=== PATIENT | male | born 1990 | race Caucasian/White ===

== ENCOUNTER 2016-09-09 18:27 | Emergency (ER) | payer OTHER, BC ==
[~2016-09-09] VITALS: Ht 185.4 cm; Wt 127.0 kg
[2016-09-09] MEDS ORDERED: ACID REDUCER75 MG PO (18:43)
== END 2016-09-09 19:15 | disposition home or self-care (01) ==
LOC: ED 18:27
DX: S80.02XA Contusion of left knee, initial encounter (principal); Z79.899 Other long term (current) drug therapy; Y08.89XA Assault by other specified means, initial encounter
CPT/HCPCS: 73560; 99283

== ENCOUNTER 2018-03-25 08:57 | Emergency (ER) | payer OTHER ==
[~2018-03-25] VITALS: Ht 185.4 cm; Wt 127.0 kg
[~2018-03-25 08:57] MED LIST: ACID REDUCER75 MG PO
--- OUTSIDE RECORDS SUMMARY | 2018-03-25 09:00 | XMS ---
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 E.Wilbert VISIT COUNT (12 MO.) 1 SONIA Diego TOTAL 1 NOTE: Visits indicate total known visits. ED/UCC VISIT TRACKING (12 MO.) 03/25/2018 08:[address] [facility] [place] TYPE: Emergency COMPLAINT: - BLOODY STOOL INPATIENT VISIT TRACKING (12 MO.) No inpatient visits to display in this time frame [id number]
[2018-03-25] MEDS ORDERED: LOVASTATIN10 MG PO (09:11)
[2018-03-25] MEDS ORDERED: MELATONIN1 MG PO (09:12)
[2018-03-25] MEDS ORDERED: IBUPROFEN200 MG PO (09:13)
[2018-03-25] MEDS ORDERED: ANUSOL-HC25 MG PR (11:21)
== END 2018-03-25 11:28 | disposition home or self-care (01) ==
LOC: ED 08:57
DX: K64.8 Other hemorrhoids (principal); K92.2 Gastrointestinal hemorrhage, unspecified; Z79.899 Other long term (current) drug therapy
CPT/HCPCS: 74177; 80053; 81001; 83690; 85025; 85610; 96360; 99285-25; J7030; Q9967

== ENCOUNTER 2018-05-08 14:48 | Emergency (ER) | payer OTHER ==
[~2018-05-08] VITALS: Ht 185.4 cm; Wt 124.7 kg
[~2018-05-08 14:48] MED LIST changes: +ANUSOL-HC25 MG PR; +IBUPROFEN200 MG PO; +LOVASTATIN10 MG PO; +MELATONIN1 MG PO; +MULTIVITAMINS1 EAC7 PO; +PROBIOTIC1 EAC1 PO; +SIMVASTATIN40 MG PO; +TYLENOL EXTRA500 MG PO; +ZANTAC150 MG PO; +ZZZQUIL25 MG PO
[2018-05-08] MEDS ORDERED: BUSPIRONE HCL5 MG PO (16:04)
== END 2018-05-08 16:17 | disposition home or self-care (01) ==
LOC: ED 14:48
DX: R20.2 Paresthesia of skin (principal); F41.9 Anxiety disorder, unspecified; E78.00 Pure hypercholesterolemia, unspecified
CPT/HCPCS: 99283

== ENCOUNTER 2018-07-13 13:37 | Emergency (ER) | payer OTHER ==
[~2018-07-13] VITALS: Ht 185.4 cm; Wt 127.0 kg
--- OUTSIDE RECORDS SUMMARY | ~2018-07-13 | XMS | Encounter Summary ---
Demographics + + + | Address | [address] | | | [place] [address] | + + + | Home Phone | | + + + | Preferred Language | Unknown | + + + | Marital Status | | + + + | Mosque Affiliation | Unknown | + + + | Race | Unknown | + + + | Ethnic Group | Unknown | + + + Author + + + | Author | [facility] | | | and [place]ana | + + + | Organization | [facility] | | | and Tomana | [...] Team Providers + +------+ + | Care Hospital Educator Name | Role | Phone | + +------+ + | Francesca Sullivan | PCP | | | PA | | | + +------+ + Reason for Visit Evaluate & Treat (Routine) +--------+--------+ + + + + | Status | Reason | Specialty | Diagnoses / | Referred By | Referred To | | | | | Procedures | Contact | Contact | +--------+--------+ + + + + | Closed | | Audiology | Diagnoses | Nate, Phill Olson | | | | | audio and | Francesca | MS Jesús | | | | | tymhans/ SOLEDAD/ | [place], [place] | CCC-A [address] | | | | | SABA/ Send | [address] | | | | | report with | Soham Jimenez | [address] | | | | | patient/ | [place], | [place] | | | | | [place] | [place] | [address] Phone: | | | | | send patient | [address] | [phone] | | | | | info/no | Phone: | Fax: | | | | | previous | [phone] | [phone] | | | | | audiogram | Fax: | | | | | | Procedures | [phone] | | | | | | OFFICE VISIT | | | | | | | REGULAR | | | +--------+--------+ + + + + Encounter Details +--------+---------+ + + + | Date | Type | Department | Care Team | Description | +--------+---------+ + + + | 05/21/ | Office | [facility] | Jesús Olson, MS | Subjective tinnitus | | 2019 | Visit | AUDIOLOGY AND | CCC-A [address] | of both ears | | | | [facility] SERVICES | [address] | (Primary Dx); | | | | [address] | [place] [address] | Sensorineural | | | | [address] | [phone] | hearing loss (SNHL) | | | | [place] [address] | | of right ear with | | | | [phone] | | unrestricted hearing | | | | | | of left ear | +--------+---------+ + + + Social History + +-------+ +--------+------+ | Tobacco [...] on file | | + + + + + + + | Job Start Date | Occupation | Industry | + + + + | Not on file | Not on file | Not on file | + + + + + + + + | Travel History | Travel Start | Travel End | + + + + + + | No recent travel history available. | + + documented as of this encounter Progress Notes Jesús Olson, CCC-A - 05/21/2018 0930 PDTReferring Provider: No additional provider santos mix M.D. Mr. Gallo presents with occasional ringing in both ears. He has noticed a muffling in his hearing, denying any pressure in his ears. He works for the [employer] and uses h earing protection during target practice. Noise history includes hunting. Results of Hearing Test: Right ear--Pure tone air and bone conduction testing showed 10-15d B threshold at 250 Hz through 1 KHz, 25dB at 2 KHz, and 15-10dB at 3 Khz through 8 KHz . Left ear --Pure tone air and bone conduction testing showed 5-15dB threshold at 250 Hz through 8 KHz. Speech Recognition Thresholds were 10dB in the right ear and 5dB in the left ear. Speech Discrimination Scores were 100% in right ear and 100% in the left ear. Tympanometry showed normal type A tracings in both ears. Impression and Recommendation: A mild sensory-neural hearing loss in the right ear and sub jective tinnitus in both ears. Hearing protection when around loud noise and hunting was di scussed. Follow-up care with Dr. Raymundo, ENT. Thank you. documented in this e ncounter Plan of Treatment Not on filedocumented as of this encounter Procedures + +--------+ + + + | Procedure Name | Priori | Date/Time | Associated Diagnosis | Comments | | | ty | | | | + +--------+ + + + | DIAGNOSTIC REPORT - | | 05/21/2018 | | Results for this | | EXTERNAL SCAN | | 0:00 PDT | | procedure are in the | | | | | | results section. | + +--------+ + + + documented in this encounter Results DIAGNOSTIC REPORT - EXTERNAL SCAN (05/21/2018 0:00 PDT) + + + | Narrative | Performed At | + + + | Ordered by an | | | unspecified provider. | | + + + documented in this encounter Visit Diagnoses + + | Diagnosis | + + | Subjective tinnitus of both ears - Primary | + + | Sensorineural hearing loss (SNHL) of right ear with unrestricted hearing of left ear | + + documented in this encounter"
--- OUTSIDE RECORDS SUMMARY | ~2018-07-13 | XMS | Clinical Summary ---
Demographics + + + | Address | [address] | | | [place] [address] | + + + | Home Phone | | + + + | Preferred Language | Unknown | + + + | Marital Status | | + + + | Zoroastrianism Affiliation | Unknown | + + + | Race | Unknown | + + + | Ethnic Group | Unknown | + + + Author + + + | Author | [facility] | | | and [place] | + + + | Organization | [facility] | | | and [place] [...] Team Providers + +------+ + | Care Roof Plumber Name | Role | Phone | + +------+ + | Francesca Sullivan | PP | | | PA | | | + +------+ + Allergies Not on File Medications Not on file Active Problems Not on file Encounters +--------+---------+ + + + | Date | Type | Specialty | Care Team | Description | +--------+---------+ + + + | 05/21/ | Office | | Jesús Olson MS | Subjective tinnitus | | 2018 | Visit | | CCC-A | of both ears | | | | | | (Primary Dx); | | | | | | Sensorineural | | | | | | hearing loss (SNHL) | | | | | | of right ear with | | | | | | unrestricted hearing | | | | | | of left ear | +--------+---------+ + + + from Last 3 Months Social History + +-------+ +--------+------+ | Tobacco [...] recent travel history available. | + + Plan of Treatment + + + + + | Health Maintenance | Due Date | Last Done | Comments | + + + + + | Vaccine: Influenza | | 12/13/2016 | | | (Season Ended) | 9 | | | + + + + + | Vaccine: | | 12/13/2016, 08/28/2006, | | | Dtap/Tdap/Td (8 - | 7 | 06/10/1995, Additional history | | | Td) | | exists | | + + + + + Procedures + +--------+ + + + | [...] section. | + +--------+ + + + from Last 3 Months Results DIAGNOSTIC REPORT - EXTERNAL SCAN (05/21/2018 0:00 PDT) + + + | Narrative | Performed At | + + + | Ordered by an | | | unspecified provider. | | + + + from Last 3 Months Insurance + +--------+ +--------+ +---------+------+ | Payer | Benefi | Subscriber | Effect | Phone | Address | Type | | | t Plan | ID | gilberto | | | | | | / | | Dates | | | | | | Group | | | | | | + +--------+ +--------+ +---------+------+ | [facility] | [facility] | [id number] | 02/13/19 | [phone] | | PPO | | PLAN | [...] Person | Self | [birth year] | [address] | | | al/Fam | | 1990 | [phone] | [place], | | | [place] | | | 0 (Home) | [place] [address] | + +--------+ +--------+ + + Advance Directives Patient has advance care planning documents on file. For more information, please contact:[facility] [place] [address]"
--- OUTSIDE RECORDS SUMMARY | ~2018-07-13 | XMS | Clinical Summary ---
Demographics + + + | Address | [address] | | | [place] [address] | + + + | Home Phone | | + + + | Preferred Language | Unknown | + + + | Marital Status | | + + + | Confucianist Affiliation | Unknown | + + + | Race | Unknown | + + + | Ethnic Group | Unknown | + + + Author + + + | Author | [facility] | | | and [place] | + + + | Organization | [facility] | | | and Tomana [...] Team Providers + +------+ + | Care Monument Installer Name | Role | Phone | + [...] | | + +--------+ +--------+ +---------+------+ | [facility] | [facility] | [id number] | 02/13/19 | [phone] | | PPO [...] Person | Self | [birth year] | [address] | | | al/Fam | | 1990 | [phone] | [place], | | | [place] | | | 0 (Home) | [place] [address] | + +--------+ +--------+ + + Advance Directives Patient has advance care planning documents on file. For more information, please contact:[facility] [place] [address]"
--- OUTSIDE RECORDS SUMMARY | ~2018-07-13 | XMS | Encounter Summary ---
Demographics + + + | Address | [address] | | | [place] [address] | + + + | Home Phone | | + + + | Preferred Language | Unknown | + + + | Marital Status | | + + + | Temple Affiliation | Unknown | + + + | Race | Unknown | + + + | Ethnic Group | Unknown | + + + Author + + + | Author | [facility] | | | and [place] | + + + | Organization | [facility] | | | and Tomana [...] Team Providers + +------+ + | Care Public Speaking Instructor Name | Role | Phone | + [...] | Audiology | Diagnoses | Nate, Phill Oslon | | | | | audio and [...] | | [place] | [place] | [address] Phone: | | | | | send patient | [address] | [phone] | | | | | info/no | Phone: | Fax: | | | | | previous | [phone] | [phone] | | | | | audiogram | Fax: | | | | | | Procedures | [phone] | | | | | | OFFICE [...] | | [address] | [place] [address] | Sensorineural | | | | [address] | [phone] | hearing loss (SNHL) | | | | [place] [address] | | of right ear with | | | | [phone] | | unrestricted hearing | | | [...] in his ears. He works for the [employer] and uses h earing protection during target [...]
[~2018-07-13 13:37] MED LIST changes: +BUSPIRONE HCL5 MG PO
[2018-07-13] MEDS ORDERED: BUSPIRONE HCL10 MG PO (14:03)
[2018-07-13] MEDS ORDERED: FLUOXETINE HCL10 MG PO (14:03)
[2018-07-13] MEDS ORDERED: PROCTOCREAM-HC30 GM TOP (14:04)
[2018-07-13] MEDS ORDERED: DICYCLOMINE HCL20 MG PO (17:44)
== END 2018-07-13 17:50 | disposition home or self-care (01) ==
LOC: ED 13:37
DX: R10.9 Unspecified abdominal pain (principal); F41.9 Anxiety disorder, unspecified; Z79.899 Other long term (current) drug therapy
CPT/HCPCS: 36415; 80053; 83690; 85025; 99284

== ENCOUNTER 2019-09-12 18:47 | Emergency (ER) | payer OTHER ==
[~2019-09-12] VITALS: Ht 185.4 cm; Wt 127.0 kg
--- OUTSIDE RECORDS SUMMARY | ~2019-09-12 | XMS | Clinical Summary ---
Demographics + + + | Address | [address] | | | [place] [address] | + + + | Home Phone | | + + + | Preferred Language | Unknown | + + + | Marital Status | | + + + | Taoism Affiliation | Unknown | + + + | Race | Unknown | + + + | Ethnic Group | Unknown | + + + Author + + + | Author | [facility] | | | and [place] | + + + | Organization | [facility] | | | and [place] | + + + | Address | Unknown | + + + | Phone | Unavailable | + + + Support + + +---------+ + | Name | Relationship | Address | Phone | + + +---------+ + | Carlie Gallo | ECON | Unknown | | + + +---------+ + Care Team Providers + +------+ + | Care Project Management Name | Role | Phone | + +------+ + | Francesca Sullivan | PCP | | | PA | | | + +------+ + Allergies Not on File Medications Not on file Active Problems Not on file Social History + +-------+ +--------+------+ | Tobacco Use | Types | Packs/Day | Years | Date | | | | | Used | | + +-------+ +--------+------+ | Never Assessed | | | | | + +-------+ +--------+------+ + + + | Sex Assigned at | Date Recorded | | | | + + + | Not on file | | + + + Last Filed Vital Signs Not on file Plan of Treatment + + + + + | Health Maintenance | Due Date | Last | Comments | | | | Done | | + + + + + | Hepatitis C | | | | | Screening | 1 | | | + + + + + | Vaccine: Influenza | | 12/14/19 | | | (#1) | 0 | 17 | | + + + + + | Vaccine: | | 12/14/19 | | | Dtap/Tdap/Td (8 - | 7 | 17, | | | Td) | | 08/29/19 | | | | | 07, | | | | | 06/09/18 | | | | | 96, | | | | | Addition | | | | | al | | | | | history | | | | | exists | | + + + + + Results Not on filefrom Last 3 Months Insurance + +--------+ +--------+ +---------+------+ | Payer | Benefi | Subscriber | Effect | Phone | Address | Type | | | t Plan | ID | gilberto | | | | | | / | | Dates | | | | | | Group | | | | | | + +--------+ +--------+ +---------+------+ | [facility] | [employer] | [id number] | 02/13/19 | [phone] | | PPO | | PLAN | PEBB | | 18-Pre | 5 | | | | | PROV | | sent | | | | | | CHOICE | | | | | | + +--------+ +--------+ +---------+------+ + +--------+ +--------+ + + | Guarantor Name | Accoun | Relation to | Date | Phone | Billing Address | | | t Type | Patient | of | | | | | | | | | | + +--------+ +--------+ + + | Venancio Gallo | Person | Self | [birth year] | [address] | | | al/Fam | | 1990 | [phone] | [place], | | | [place] | | | 0 (Home) | [place] [address] | + +--------+ +--------+ + + Advance Directives + + + + + | Type | Date Recorded | Patient | Explanation | | | | Pull Socket Assembler | | + + + + + | Power of | | | | | Heat Treat Worker | | | | + + + + + | Advance | | | | | Directive | | | | + + + + +"
--- OUTSIDE RECORDS SUMMARY | ~2019-09-12 | XMS | Encounter Summary ---
Demographics + + + | Address | [address] | | | [place] [address] | + + + | Home Phone | | + + + | Preferred Language | Unknown | + + + | Marital Status | | + + + | Protestant Affiliation | Unknown | + + + | Race | Unknown | + + + | Ethnic Group | Unknown | + + + Author + + + | Author | [facility] | | | and [place] | + + + | Organization | [facility] | | | and Tomana [...] Team Providers + +------+ + | Care Blade Boner Name | Role | Phone | + [...] | | Audiology | Diagnoses | Nate, | Wesley | | | | | audio and | Francesca | MS Jesús | | | | | calixto/ SOLED[place]/ | [facility]O Pickard | [facility] [address] | | | | | SABA/ Send | [address] | | | | | report with | Soham Jimenez | [address] | | | | | patient/ | [place], | [place] | | | | | [place] | [place] | [address] Phone: | | | | | send patient | [address] | [phone] | | | | | info/no | Phone: | Fax: | | | | | previous | [phone] | [phone] | | | | | audiogram | Fax: | | | | | | Procedures | [phone] | | | | | | OFFICE VISIT | | | | | | | REGULAR | | | +--------+--------+ + + + + Encounter Details +--------+---------+ + + + | Date | Type | Department | Care Team | Description | +--------+---------+ + + + | 05/21/ | Office | [facility] [place] | Jesús Olson MS | Subjective tinnitus | | 2019 | Visit | AUDIOLOGY AND | CCC-A [address] | of both ears | | | | HEARING AID SERVICES | [address] | (Primary Dx); | | | | [address] | [place] [address] | Sensorineural | | | | [address] | [phone] | hearing loss (SNHL) | | | | [place] [address] | | of right ear with | | | | [phone] | | unrestricted hearing | | | [...] on file | | + + + documented as of this encounter Progress Notes Jesús Olson, CCC-A - 05/21/2018 9:30 AM PDTReferring Provider: No additional provider found M.Rony. Mr. Gallo presents with occasional ringing in both ears. He has noticed a muffling in his hearing, denying any pressure in his ears. He works for the [employer] and uses h earing protection during target [...] Dr. Raymundo, ENT. Thank you. documented in thi s encounter Plan of Treatment Not on filedocumented as of this encounter Procedures + +--------+ + + + | Procedure Name | Priori | Date/Time | Associated Diagnosis | Comments | | | ty | | | | + +--------+ + + + | DIAGNOSTIC REPORT - | | 05/21/2018 | | Results for this | | EXTERNAL SCAN | | 12:00 AM | | procedure are in the | | | | PDT | | results section. | + +--------+ + + + documented in this encounter Results DIAGNOSTIC REPORT - EXTERNAL SCAN (05/21/2018 12:00 AM PDT) + + + | Narrative | [...]
[~2019-09-12 18:47] MED LIST changes: +BUSPIRONE HCL10 MG PO; +CETIRIZINE HCL10 MG PO; +DICYCLOMINE HCL20 MG PO; +FISH OIL 1,0001 EAC3 PO; +FLUOXETINE HCL10 MG PO; +L-METHYLFOLATE15 M1 PO; +MAGNESIUM27 MG PO; +PROCTOCREAM-HC30 GM TOP; +TRAZODONE HCL50 MG PO; +VITAMIN B122500 MCG PO; +VITAMIN D35000 UNIT PO; +WELLBUTRIN XL300 MG PO
--- OUTSIDE RECORDS SUMMARY | 2019-09-12 18:50 | XMS ---
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 EEneida VISIT COUNT (12 MO.) 1 SONIA Diego TOTAL 1 NOTE: Visits indicate total known visits. ED/UCC VISIT TRACKING (12 MO.) 09/12/2019 18:48 [facility] [place] TYPE: Emergency COMPLAINT: - UPPER ABDOMINAL PAIN,VOMITING, DIAHREA INPATIENT VISIT TRACKING (12 MO.) No inpatient visits to display in this time frame [id number]
[2019-09-12] MEDS ORDERED: GABAPENTIN300 MG PO (20:03)
[2019-09-12] MEDS ORDERED: MIRTAZAPINE45 MG PO (20:03)
[2019-09-12] MEDS ORDERED: GEODON80 MG NG (20:03)
[2019-09-12] MEDS ORDERED: ZOFRAN4 MG PO (23:27)
[2019-09-12] MEDS ORDERED: PRILOSEC OTC20 MG PO (23:30)
== END 2019-09-12 23:49 | disposition home or self-care (01) ==
LOC: ED 18:47
DX: K52.9 Noninfective gastroenteritis and colitis, unspecified (principal); E78.00 Pure hypercholesterolemia, unspecified; F41.9 Anxiety disorder, unspecified; Z79.899 Other long term (current) drug therapy
CPT/HCPCS: 74177; 80053; 81001; 83690; 83735; 85025; 96361; 96375; 99284-25; J1885; J2405; J7030; Q9967

== ENCOUNTER 2020-11-06 20:13 | Emergency (ER) | payer OTHER ==
[~2020-11-06] VITALS: Ht 185.4 cm; Wt 129.3 kg
[~2020-11-06 20:13] MED LIST changes: +GABAPENTIN300 MG PO; +GEODON80 MG NG; +MIRTAZAPINE45 MG PO; +NORCO 10-325 T1 EACH PO; +PRILOSEC OTC20 MG PO; +ZOFRAN4 MG PO
--- OUTSIDE RECORDS SUMMARY | 2020-11-06 20:16 | XMS ---
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 EEneida VISIT COUNT (12 MO.) 1 SONIA Diego TOTAL 1 NOTE: Visits indicate total known visits. ED/UCC VISIT TRACKING (12 MO.) 11/06/2020 20:14 [facility] [place] TYPE: Emergency COMPLAINT: - CHEST PAIN INPATIENT VISIT TRACKING (12 MO.) No inpatient visits to display in this time frame [id number]
[2020-11-06] MEDS ORDERED: ATIVAN1 MG PO (20:54)
--- NOTE | 2020-11-07 22:04 | EKG ---
[facility] [address] [facility] [place], [place] [address] Signed Normal sinus rhythm Normal ECG When compared with ECG of 24-AUG-2018 17:47, No significant change was found Confirmed by DELMY ROQUE DO ([id number]) on 11/07/2020 10:03:45 PM Electronically Signed By: DELMY ROQUE DO 11/07/20 2204 PATIENT NAME: RODY ALVARADO CHECO Electrocardiogram DATE OF : [birth year] PHYSICIAN: DELMY ROQUE DO REPORT #: [id number] REPORT IS CONFIDENTIAL AND NOT TO BE RELEASED WITHOUT AUTHORIZATION
== END 2020-11-06 21:52 | disposition home or self-care (01) ==
LOC: ED 20:13
DX: T84.328A Displacement of other bone devices, implants and grafts, initial encounter (principal); E78.00 Pure hypercholesterolemia, unspecified; I10 Essential (primary) hypertension; Z79.899 Other long term (current) drug therapy
CPT/HCPCS: 71045; 93005; 93010; 99285-25